=== PATIENT | male | born 1980 | race Caucasian/White ===

== ENCOUNTER 2022-03-14 05:00 | Inpatient (IN) | payer BC ==
[~2022-03-14] VITALS: Ht 180.3 cm; Wt 104.8 kg
[2022-03-14 05:23] LABS: HEMOGLOBIN 16.7 gm/dl (14.0-17.5); RED BLOOD COUNT 5.33 M/UL (4.20-5.50); WHITE BLOOD COUNT 22.5 K/UL (4.5-11.0)
[2022-03-14 05:40] LABS: BUN/CREATININE RATIO 15 (0-10)
[2022-03-14] MEDS ORDERED: BUPRENORPHINE HC8 MG SL (10:45)
[2022-03-14] MEDS ORDERED: PROTONIX40 MG PO (10:45)
[2022-03-14] MEDS ORDERED: METOPROLOL TART25 MG PO (10:46)
[2022-03-14] MEDS ORDERED: MOTRIN IB200 MG PO (10:47)
[2022-03-15 04:31] LABS: HEMOGLOBIN 16.1 gm/dl (14.0-17.5); RED BLOOD COUNT 5.2 M/UL (4.20-5.50)
[2022-03-15 04:41] LABS: WHITE BLOOD COUNT 8.6 K/UL (4.5-11.0)
[2022-03-15 05:03] LABS: BUN/CREATININE RATIO 12 (0-10)
[2022-03-16 05:13] LABS: RED BLOOD COUNT 5.17 M/UL (4.20-5.50)
[2022-03-16 05:30] LABS: BUN/CREATININE RATIO 17 (0-10)
[2022-03-16] MEDS ORDERED: BRILINTA 90 MG90 MG PO (09:58)
[2022-03-16] MEDS ORDERED: ASPIRIN EC81 MG PO (09:58)
[2022-03-16] MEDS ORDERED: NITROGLYCERIN0.4 MG SL (09:58)
[2022-03-16] MEDS ORDERED: ATORVASTATIN CA20 MG PO (09:58)
[2022-03-16] MEDS ORDERED: METOPROLOL SUCC50 MG PO (09:58)
[2022-03-16] MEDS ORDERED: NICOTINE PATCH1 EAC2 TD (09:58)
[2022-03-16] MEDS ORDERED: LISINOPRIL5 MG PO (09:58)
--- NOTE | 2022-03-16 10:49 | NUR ---
PATIENT HAS BEEN EDUCATED ON DISCHARGE INFORMATION INCLUDING SITE CARE ON RIGHT RADIAL INSERTION SITE, HEART HEALTH AND SMOKING CESSATION AND NEW MEDICATION BRILINTA AND NITROGLYCERIN. PATIENT VERBALIZES UNDERSTANDING FOR INFORMATION AND STATES HE IS READY FOR SAFE DISCHARGE. IV'S HAVE BEEN REMOVED AND THE PATIENT IS BEING TRANSPORTED VIA WHEELCHAIR TO THE FRONT ENTRANCE WHERE THE IS PICKING PATIENT UP FOR TRANSPORT HOME.
== END 2022-03-16 10:57 | disposition home or self-care (01) | DRG 247 ==
LOC: ER1 05:00 → CDU 06:01 → CCU 06:01
PROVIDERS: Family Medicine; Internal Medicine Cardiovascular Disease; Internal Medicine Pulmonary Disease; ADMIT Internal Medicine
PROC: 027034Z Dilation of Coronary Artery, One Artery with Drug-eluting Intraluminal Device, Percutaneous Approach (ICD-10-PCS; principal; 2022-03-14)
PROC: B240ZZ3 Ultrasonography of Single Coronary Artery, Intravascular (ICD-10-PCS; 2022-03-14)
PROC: 4A023N7 Measurement of Cardiac Sampling and Pressure, Left Heart, Percutaneous Approach (ICD-10-PCS; 2022-03-14)
PROC: B2111ZZ Fluoroscopy of Multiple Coronary Arteries using Low Osmolar Contrast (ICD-10-PCS; 2022-03-14)
PROC: B24BZZZ Ultrasonography of Heart with Aorta (ICD-10-PCS; 2022-03-14)
DX: I21.09 ST elevation (STEMI) myocardial infarction involving other coronary artery of anterior wall (principal); F11.20 Opioid dependence, uncomplicated; I10 Essential (primary) hypertension; Z20.822 Contact with and (suspected) exposure to COVID-19; K21.9 Gastro-esophageal reflux disease without esophagitis; F17.210 Nicotine dependence, cigarettes, uncomplicated; J98.4 Other disorders of lung; I25.5 Ischemic cardiomyopathy; I08.1 Rheumatic disorders of both mitral and tricuspid valves
CPT/HCPCS: ECHO; 71045; 80048; 80053; 80061; 82550; 82553; 84132; 84484; 85025; 85027; 85347; 85610; 92978; 93005; 93306; 96374; 99152; 99153; 99285; C1725; C1753; C1769; C1874; C1887; C1894; J1644; J2250; J2270; J2405; J3010; Q9965

== ENCOUNTER → 2022-05-12 | Outpatient (CLI) | payer BC ==
[~2022-05-12] MED LIST: ASPIRIN EC81 MG PO; ATORVASTATIN CA20 MG PO; BRILINTA 90 MG90 MG PO; BUPRENORPHINE HC8 MG SL; LISINOPRIL5 MG PO; METOPROLOL SUCC50 MG PO; METOPROLOL TART25 MG PO; MOTRIN IB200 MG PO; NICOTINE PATCH1 EAC2 TD; NITROGLYCERIN0.4 MG SL; PROTONIX40 MG PO
== END ==
LOC: HEART 5 09:00
DX: I42.0 Dilated cardiomyopathy (principal); I25.5 Ischemic cardiomyopathy
CPT/HCPCS: 93306

== ENCOUNTER 2022-07-03 01:31 | Emergency (ER) | payer BC ==
[2022-07-03 03:22] LABS: RED BLOOD COUNT 4.5 M/UL (4.20-5.50); WHITE BLOOD COUNT 8.7 K/UL (4.5-11.0)
[2022-07-03 03:47] LABS: BUN/CREATININE RATIO 16 (0-10)
== END 2022-07-03 05:09 | disposition home or self-care (01) ==
LOC: ER1 01:31
PROVIDERS: Family Medicine
DX: R00.0 Tachycardia, unspecified (principal); I25.10 Atherosclerotic heart disease of native coronary artery without angina pectoris; I25.2 Old myocardial infarction; Z95.5 Presence of coronary angioplasty implant and graft; Z87.891 Personal history of nicotine dependence; Z79.899 Other long term (current) drug therapy; Z51.81 Encounter for therapeutic drug level monitoring
CPT/HCPCS: 80053; 80307; 82550; 82553; 84439; 84443; 84484; 85025; 85610; 93005; 99285